=== PATIENT | female | born 1965 | race Caucasian/White ===

== ENCOUNTER 2017-05-05 14:35 | Inpatient (IN) | payer OTHER ==
[~2017-05-05] VITALS: Ht 167.6 cm; Wt 80.7 kg
[~2017-05-05 14:35] MED LIST: ESTR0.5T SQ; MULT-516 PO; NONE PER PT; [UNRECOGNIZED DRUG - REMARK]
[2017-05-05] MEDS ORDERED: SODIUM CHLORIDE 0.9% 1,000 ML IV ONE (14:55)
[2017-05-05] MEDS ORDERED: HYDROmorphone 1 MG/ML, 1ML IVPush PRN (15:00)
[2017-05-05] MEDS ORDERED: SODIUM CHLORIDE 0.9% 1,000ML IVBOLUS ONE (15:00)
[2017-05-05] MEDS ORDERED: SODIUM CHLORIDE FLUSH 10ML SYR IVF ONE (15:00)
[2017-05-05] MEDS ORDERED: ONDANSETRON 2MG/ML, 2ML IVPush ONE (15:00)
[2017-05-05 15:16] LABS: HEMATOCRIT 37.6 % (34.6-47.8); HEMOGLOBIN 12.7 g/dL (11.7-16.4); WHITE BLOOD COUNT 8.1 x10^3/uL (3.4-10)
[2017-05-05 15:24] LABS: ASPARTATE AMINO TRANSFERASE 451 U/L (15-37); BLOOD UREA NITROGEN 19 mg/dL (7-18)
[2017-05-05] MEDS ORDERED: ONDANSETRON 2MG/ML, 2ML ONE (15:33)
[2017-05-05] MEDS ORDERED: HYDROmorphone 1 MG/ML, 1ML ONE (15:33)
[2017-05-05] MEDS ORDERED: NITROGLYCERIN SINGLE TAB 0.4 MG SL ONE (16:32)
[2017-05-05] MEDS ORDERED: ASPIRIN 81 MG TABLET CHEW ONE (16:33)
[2017-05-05] MEDS ORDERED: morphine SULFATE 10 MG/ML, 1ML ONE (16:48)
[2017-05-05] MEDS: MORPHINE SULFATE 4 MG/ML, 1ML IVPush PRN ×2 (16:53→17:28)
[2017-05-05 16:54] LABS: IS PT STATUS REG ER OR PRE ER? YES
[2017-05-05] MEDS ORDERED: NITROGLYCERIN SINGLE TAB 0.4 MG SL PRN (17:00)
[2017-05-05] MEDS ORDERED: ASPIRIN 81 MG TABLET CHEW PO ONE (17:00)
[2017-05-05] MEDS ORDERED: SODIUM CHLORIDE FLUSH 10ML SYR IVF PRN (17:30)
[2017-05-05] MEDS ORDERED: BISACODYL 10 MG SUPP PR PRN (18:30)
[2017-05-05] MEDS: ONDANSETRON 2MG/ML, 2ML IVPush PRN (19:47)
[2017-05-05 21:47] VITALS: BP 104/66
[2017-05-05] MEDS: SODIUM CHLORIDE 0.9% 1,000 ML IV SCH (21:49)
[2017-05-05] MEDS: HEPARIN 5,000 UNITS/ML, 1ML SQ SCH (21:49)
[2017-05-05] MEDS ORDERED: LISI-424 PO (21:54)
[2017-05-05] MEDS ORDERED: ESCI10TA10 PO (21:55)
[2017-05-05] MEDS ORDERED: MORPHINE SULFATE 4 MG/ML, 1ML ONE (22:42)
[2017-05-05] MEDS: morphine SULFATE 10 MG/ML, 1ML IVPush PRN (22:49)
[2017-05-06 00:51] VITALS: BP 91/60
[2017-05-06] MEDS: HEPARIN 5,000 UNITS/ML, 1ML SQ SCH ×3 (04:41→21:35)
[2017-05-06 05:46] LABS: ASPARTATE AMINO TRANSFERASE 693 U/L (15-37); BLOOD UREA NITROGEN 9 mg/dL (7-18)
[2017-05-06 07:10] VITALS: BP 105/73
[2017-05-06] MEDS: ONDANSETRON 2MG/ML, 2ML IVPush PRN ×3 (08:52→21:35)
[2017-05-06] MEDS: SODIUM CHLORIDE 0.9% 1,000 ML IV SCH ×2 (08:58→15:34)
[2017-05-06] MEDS: CITALOPRAM 20 MG TABLET PO SCH ×2 (09:00→11:28)
[2017-05-06] MEDS: MULTIVITAMIN 1 TABLET PO SCH (09:00)
[2017-05-06] MEDS: morphine SULFATE 10 MG/ML, 1ML IVPush PRN (10:07)
[2017-05-06 13:57] VITALS: BP 106/71
[2017-05-06 14:35] VITALS: BP 107/73
[2017-05-06 19:15] VITALS: BP 114/73
[2017-05-07] MEDS: SODIUM CHLORIDE 0.9% 1,000 ML IV SCH (00:29)
[2017-05-07 01:41] VITALS: BP 122/82
[2017-05-07] MEDS: ONDANSETRON 2MG/ML, 2ML IVPush PRN (05:11)
[2017-05-07] MEDS: HEPARIN 5,000 UNITS/ML, 1ML SQ SCH (05:12)
[2017-05-07 05:43] LABS: BLOOD UREA NITROGEN 6 mg/dL (7-18)
[2017-05-07 05:48] LABS: ASPARTATE AMINO TRANSFERASE 261 U/L (15-37)
[2017-05-07 07:31] VITALS: BP 127/80
[2017-05-07] MEDS ORDERED: OMEP-110 PO (09:21)
[2017-05-07] MEDS ORDERED: POTASSIUM CHLORIDE 20 MEQ TAB.ER.PRT PO SCH (09:30)
[2017-05-07] MEDS: MULTIVITAMIN 1 TABLET PO SCH (10:04)
[2017-05-07] MEDS: CITALOPRAM 20 MG TABLET PO SCH (10:04)
== END 2017-05-07 13:05 | disposition home or self-care (01) | DRG 433 ==
LOC: ED 16:42 → EDIP 17:39 → 5SO 18:29 → 4WST 05-06 14:13 → DCLOUNGE 05-07 12:46
PROVIDERS: ADMIT Internal Medicine; ATTEND Internal Medicine
DX: K70.10 Alcoholic hepatitis without ascites (principal); F10.988 Alcohol use, unspecified with other alcohol-induced disorder; N28.1 Cyst of kidney, acquired; F32.9 Major depressive disorder, single episode, unspecified; I10 Essential (primary) hypertension; Z79.899 Other long term (current) drug therapy; Z80.41 Family history of malignant neoplasm of ovary; Z82.49 Family history of ischemic heart disease and other diseases of the circulatory system
CPT/HCPCS: 36415; 76700; 80053; 80074; 81003; 83690; 84439; 84443; 84484; 85025; 85610; 86677; 87040; 87046; 87324; 87899; 93005; 93306; 96361; 96374; 96375; J1170; J1644; J2405; J2270; J7030